=== PATIENT | male | born 1950 | race Caucasian/White ===

== ENCOUNTER 2017-05-30 12:03 | Outpatient (CLI) | payer MEDICARE ==
[2017-05-30 12:46] LABS: #Basophils 0.1 thou/uL (0.0-0.2); #Eosinphils 0.4 thou/uL (0.0-0.7); #Lymphocytes 1.2 thou/uL (1.20-3.40); #Monocytes 0.8 thou/uL (0.11-0.59); #Neutrophils 6.9 thou/uL (1.40-6.50); %Basophils 1.2 % (0.0-1.0); %Eosinophils 4.1 % (0.0-10.0); %Lymphocytes 12.4 % (21.0-51.0); %Monocytes 8.3 % (0.0-10.0); %Neutrophils 73.9 % (42.0-75.0); Hemoglobin 17.5 g/dL (14.0-18.0); Mean Corpuscular HGB CONC 33.2 g/dL (32.0-36.0); Mean Corpuscular Hemoglobin 30.3 pg (27.0-31.0); Mean Corpuscular Volume 91.3 fl (80.0-94.0); Mean Platelet Volume 6.5 fL (7.4-10.4); Platelet Count 302 thou/uL (130-400); RBC Distribution Width 11.9 % (11.5-14.5); Red Blood Cell (RBC) Count 5.78 mill/uL (4.70-6.10); White Blood Cell (WBC) Count 9.3 thou/uL (4.8-10.8)
[2017-05-30 13:14] LABS: Bilirubin Negative (Negative); Blood, Urine Trace (Negative); Clarity Clear (Clear); Glucose, Urine (Dipstick) Negative (Negative); Leukocyte Negative (Negative); Nitrite Negative (Negative); Protein, Urine (Dipstick) Negative (Neg-Trace); Urobilinogen 0.2 mg/dL (0.2-1.0); pH, Urine 5.5 (5.0-9.0)
[2017-05-30 13:23] LABS: Hemoglobin A1c 5.5 % (4.0-6.0)
[2017-05-30 13:25] LABS: ALT (SGPT) 18 U/L (8-55); AST (SGOT) 15 U/L (5-34); Alkaline Phosphatase 86 U/L (40-150); Anion Gap 17 mmol/L (10-20); BUN (Urea Nitrogen) 16 mg/dL (8.4-25.7); Bilirubin, Total 0.9 mg/dL (0.2-1.2); Calc. Creatinine Clearance 0 mL/min (70-130); Calcium 9.9 mg/dL (7.8-10.44); Carbon Dioxide 22 mmol/L (23-31); Chloride 104 mmol/L (98-107); Estimated GFR-MDRD Greater than 90; Globulin 2.3 g/dL (2.4-3.5); Glucose 201 mg/dL (80-115); Potassium 4.6 mmol/L (3.5-5.1); Protein, Total 6.3 g/dL (5.8-8.1); Sodium 138 mmol/L (136-145)
[2017-05-30 13:38] LABS: Bacteria/HPF Rare-Few HPF (None Seen); RBC/HPF 0-3 HPF (0-3); Squamous Epithelial 0-3 HPF (0-3); WBC/HPF 0-3 HPF (0-3)
== END 2017-05-30 12:04 | disposition home or self-care (01) ==
LOC: NAVSJIPCSP 12:03
PROVIDERS: ATTEND Internal Medicine
DX: E11.9 Type 2 diabetes mellitus without complications (principal); C44.329 Squamous cell carcinoma of skin of other parts of face; K29.30 Chronic superficial gastritis without bleeding; I10 Essential (primary) hypertension
CPT/HCPCS: 36415; 80053; 81003; 81015; 83036; 84443; 85025

== ENCOUNTER 2019-12-14 17:48 | Emergency (ER) | payer MEDICARE, OTHER ==
[2019-12-14] MEDS ORDERED: Morphine 2 MG/ML SYRINGE ONE ×4 (18:31→20:56)
[2019-12-14] MEDS ORDERED: Sodium Chloride 0.9% 0 ML ONE (18:31)
[2019-12-14 18:33] LABS: ALT (SGPT) 18 U/L (8-55); AST (SGOT) 18 U/L (5-34); Albumin 4.1 g/dL (3.4-4.8); Alkaline Phosphatase 77 U/L (40-110); Anion Gap 18 mmol/L (10-20); BUN (Urea Nitrogen) 6 mg/dL (8.4-25.7); Bilirubin, Total 1.2 mg/dL (0.2-1.2); Calc. Creatinine Clearance 0 mL/min (70-130); Calcium 8.9 mg/dL (7.8-10.44); Carbon Dioxide 24 mmol/L (23-31); Chloride 102 mmol/L (98-107); Estimated GFR-MDRD Greater than 90; Globulin 2.7 g/dL (2.4-3.5); Glucose 163 mg/dL (80-115); Potassium 3.7 mmol/L (3.5-5.1); Protein, Total 6.8 g/dL (5.8-8.1); Sodium 140 mmol/L (136-145)
[2019-12-14 18:37] LABS: Hemoglobin 16.5 g/dL (14.0-18.0); Mean Corpuscular HGB CONC 33.8 g/dL (32.0-36.0); Mean Corpuscular Hemoglobin 30.6 pg (27.0-31.0); Mean Corpuscular Volume 90.6 fL (78.0-98.0); Mean Platelet Volume 6.7 fL (7.4-10.4); Platelet Count 415 thou/uL (130-400); RBC Distribution Width 11.4 % (11.5-14.5); Red Blood Cell (RBC) Count 5.38 mill/uL (4.70-6.10); White Blood Cell (WBC) Count 15.2 thou/uL (4.8-10.8)
[2019-12-14 18:39] LABS: Band 1 % (5-11); Lymphocytes 16 % (21-51); MDiff Complete? YES; Monocytes 5 % (0-10); Neutrophil 78 % (42-75); RBC Morphology Normal
--- NOTE | 2019-12-14 18:56 | CT ---
CT Stone Protocol: 12/14/2019 6:23 PM HISTORY: Abdominal pain COMPARISON: 04/16/2014 TECHNIQUE: Multiple contiguous axial images were obtained and a CT of the abdomen and pelvis without IV contrast . Coronal and sagittal reformats were performed. FINDINGS: This examination is limited for the evaluation of solid organs and vascular structures due to the lac k of intravenous contrast. Lower Chest: Calcified granulomas in the right lung base. Abdomen: Liver: Stable air is seen in the left lobe biliary tree. Scattered calcified granulomas. Bile Ducts: Air is seen in the common bile duct. Gallbladder: Absent Pancreas: within normal limits. A duodenal diverticulum is seen within the pancreatic head. Spleen: Scattered calcified granulomas. Adrenals: within normal limits. Kidneys: within normal limits. Pelvis: Reproductive Organs: No pelvic masses. Calcifications in the prostate. Ureters: within normal limits. Bladder: within normal limits. Bowel: Normal caliber. Scattered diverticula in the colon. The appendix is not definitely seen. Mesenteric Lymph Nodes: No enlarged mesenteric lymph nodes. Peritoneum: No ascites or free air, no fluid collection. Vessels: Atherosclerotic calcifications in the aorta Retroperitoneum: within normal limits. Abdominal Wall: within normal limits. Bones: Stable circumscribed sclerotic lesions are seen in the bones of the pelvis. Degenerative saleh es are seen in the spine. IMPRESSION: 1. Diverticulosis 2. Duodenal diverticulum
[2019-12-14] MEDS ORDERED: Ondansetron PF 4 MG/2 ML Vial ONE (19:43)
[2019-12-14] MEDS ORDERED: Sodium Chloride 0.9% 100 ML ONE (20:01)
[2019-12-14] MEDS ORDERED: Cefepime 2 GM VIAL ONE (20:01)
[2019-12-14] MEDS ORDERED: Sodium Chloride 0.9% 1,000 ML ONE ×2 (20:30→20:36)
[2019-12-14] MEDS ORDERED: Sodium Chloride 0.9% 250 ML 500 ML ONE (20:30)
== END 2019-12-14 21:05 | disposition short-term general hospital (02) ==
LOC: NAV ERS 17:48
DX: I33.9 Acute and subacute endocarditis, unspecified (principal); R74.0 Nonspecific elevation of levels of transaminase and lactic acid dehydrogenase [LDH]; Z87.891 Personal history of nicotine dependence; Z79.84 Long term (current) use of oral hypoglycemic drugs; Z79.899 Other long term (current) drug therapy
CPT/HCPCS: 36415; 74176; 80053; 83605; 83690; 84484; 85025; 87040; 93005; 96361; 96365; 96374; 96375; 96376; J0692; J2270; J2405; J3370; J3490; J7050

== ENCOUNTER 2019-12-30 02:42 | Emergency (ER) | payer MEDICARE, OTHER ==
[2019-12-30] MEDS ORDERED: Bacitracin 1 PK ONE (03:20)
[2019-12-30] MEDS ORDERED: Adacel (T-DAP) 0.5 ML SYRINGE ONE (03:24)
== END 2019-12-30 04:04 | disposition home or self-care (01) ==
LOC: NAV ERS 02:42
DX: S91.301A Unspecified open wound, right foot, initial encounter (principal); S80.01XA Contusion of right knee, initial encounter; K31.84 Gastroparesis; Z87.891 Personal history of nicotine dependence; Z79.899 Other long term (current) drug therapy; Z23 Encounter for immunization; W01.0XXA Fall on same level from slipping, tripping and stumbling without subsequent striking against object, initial encounter
CPT/HCPCS: 36416; 90471; 90715; 93005

== ENCOUNTER 2020-07-15 16:07 | Emergency (ER) | payer MEDICARE, OTHER ==
[2020-07-15 17:25] LABS: Hemoglobin 18.4 g/dL (14.0-18.0); Mean Corpuscular HGB CONC 32.7 g/dL (32.0-36.0); Mean Corpuscular Hemoglobin 30.2 pg (27.0-31.0); Mean Corpuscular Volume 92.6 fL (78.0-98.0); Mean Platelet Volume 7.2 fL (7.4-10.4); Platelet Count 332 thou/uL (130-400); RBC Distribution Width 12.1 % (11.5-14.5); Red Blood Cell (RBC) Count 6.09 mill/uL (4.70-6.10); White Blood Cell (WBC) Count 5.5 thou/uL (4.8-10.8)
[2020-07-15 17:26] LABS: ALT (SGPT) 41 U/L (8-55); AST (SGOT) 34 U/L (5-34); Albumin 4.5 g/dL (3.4-4.8); Alkaline Phosphatase 108 U/L (40-110); Anion Gap 19 mmol/L (10-20); BUN (Urea Nitrogen) 17 mg/dL (8.4-25.7); Calc. Creatinine Clearance 0 mL/min (70-130); Calcium 9.2 mg/dL (7.8-10.44); Carbon Dioxide 24 mmol/L (23-31); Chloride 97 mmol/L (98-107); Estimated GFR-MDRD 63; Globulin 3.3 g/dL (2.4-3.5); Glucose 250 mg/dL (80-115); Potassium 3.5 mmol/L (3.5-5.1); Protein, Total 7.8 g/dL (5.8-8.1); Sodium 136 mmol/L (136-145)
--- NOTE | 2020-07-15 17:37 | RAD ---
Chest AP view INDICATION: Weakness COMPARISON: Prior exam dated March 04, 2014 FINDINGS: Lungs: The lungs are clear Cardiac silhouette: Heart size is normal. There are stable vascular calcifications of the aortic arc h. Pulmonary vasculature: Normal Pleural spaces: No pleural effusion or pneumothorax is demonstrated. Upper abdomen: No abnormality seen. Osseous structures: No acute osseous abnormality. Additional findings: None. IMPRESSION: No acute cardiopulmonary abnormality.
[2020-07-15] MEDS ORDERED: Sodium Chloride 0.9% 1,000 ML ONE ×2 (17:49→18:48)
[2020-07-15 17:56] LABS: Band 1 % (5-11); Eosinophils 8 % (0-10); Lymphocytes 21 % (21-51); MDiff Complete? YES; Monocytes 5 % (0-10); Neutrophil 65 % (42-75); Platelet Morphology Comment Appears Adequate; RBC Morphology Normal
== END 2020-07-15 19:45 | disposition home or self-care (01) ==
LOC: NAV ERS 16:07
DX: E86.9 Volume depletion, unspecified (principal); I95.1 Orthostatic hypotension; K31.84 Gastroparesis; Z85.858 Personal history of malignant neoplasm of other endocrine glands; Z87.891 Personal history of nicotine dependence; Z79.84 Long term (current) use of oral hypoglycemic drugs; Z79.899 Other long term (current) drug therapy
CPT/HCPCS: 71045; 80053; 84443; 84484; 85025; 93005; J7050

== ENCOUNTER 2020-10-22 16:00 | Inpatient (IN) | payer MEDICARE, OTHER ==
[2020-10-22] MEDS ORDERED: Sodium Chloride 0.9% 0 ML ONE (16:13)
[2020-10-22] MEDS ORDERED: Sodium Chloride 0.9% 1,000 ML ONE (16:15)
[2020-10-22 16:30] LABS: #Basophils 0.1 thou/uL (0.0-0.2); #Eosinphils 0.2 thou/uL (0.0-0.7); #Lymphocytes 1.7 thou/uL (1.20-3.40); #Monocytes 0.7 thou/uL (0.11-0.59); #Neutrophils 7.2 thou/uL (1.40-6.50); %Basophils 1.1 % (0.0-1.0); %Eosinophils 1.7 % (0.0-10.0); %Lymphocytes 17.1 % (21.0-51.0); %Monocytes 7.2 % (0.0-10.0); %Neutrophils 72.9 % (42.0-75.0); Hemoglobin 16.8 g/dL (14.0-18.0); Mean Corpuscular HGB CONC 33.8 g/dL (32.0-36.0); Mean Corpuscular Hemoglobin 31.6 pg (27.0-31.0); Mean Corpuscular Volume 93.6 fL (78.0-98.0); Mean Platelet Volume 6.7 fL (7.4-10.4); Platelet Count 429 thou/uL (130-400); RBC Distribution Width 13.8 % (11.5-14.5); Red Blood Cell (RBC) Count 5.33 mill/uL (4.70-6.10); White Blood Cell (WBC) Count 9.8 thou/uL (4.8-10.8)
[2020-10-22 16:45] LABS: ALT (SGPT) 29 U/L (8-55); AST (SGOT) 27 U/L (5-34); Albumin 4.3 g/dL (3.4-4.8); Alkaline Phosphatase 90 U/L (40-110); Anion Gap 20 mmol/L (10-20); BUN (Urea Nitrogen) 9 mg/dL (8.4-25.7); Bilirubin, Total 1.2 mg/dL (0.2-1.2); Calc. Creatinine Clearance 0 mL/min (70-130); Carbon Dioxide 25 mmol/L (23-31); Chloride 97 mmol/L (98-107); Glucose 137 mg/dL (80-115); Lipase 26 U/L (8-78); Protein, Total 7.3 g/dL (5.8-8.1); Sodium 138 mmol/L (136-145)
[2020-10-22] MEDS ORDERED: cefTRIAXone\\ROCEPHIN 1 GM VIAL ONE (17:39)
[2020-10-22 18:29] LABS: Bilirubin Negative (Negative); Blood, Urine Negative (Negative); Clarity Clear (Clear); Glucose, Urine (Dipstick) Negative (Negative); Ketone, Urine Negative (Negative); Leukocyte Small (Negative); Nitrite Negative (Negative); Protein, Urine (Dipstick) Negative (Neg-Trace); pH, Urine 5.5 (5.0-9.0)
--- NOTE | 2020-10-22 18:30 | CT ---
CT ABDOMEN WITH CONTRAST CT PELVIS WITH CONTRAST: DATE: 10/22/20 HISTORY: 70-year-old male with generalized abdominal pain and UTI. COMPARISON: CT angiogram abdomen and pelvis 12/14/19. Standard CT abdomen and pelvis with contrast 04/16/14. TECHNIQUE: IV injection of iodinated contrast media: 100 mL Isovue 370 Oral contrast media: Not administered. FINDINGS: Gallbladder absent. There is currently a significantly greater amount of gas in bile ducts in the left lobe of the liver, whereas there was only a tiny amount on 12/14/19. There was a moderate amount on 04/16/14, less than c urrently. In the gallbladder fossa, again noted is the small air containing lesion which probably represents th e upper portion of the common hepatic duct and/or proximal branch. It is less dilated than before. Ca liber is currently 12 mm maximum, whereas it was up to 19 mm on 12/14/19. The common bile duct and com mon hepatic duct are less dilated than they were on 12/14/19. No other hepatic abnormality. No portal vein thrombosis. No major pathology of bilateral kidneys, adrenals, pancreas, or spleen. There is no longer evidence o f fatty liver. Large number of diverticula throughout descending and sigmoid colon without convincing evidence of di verticulitis. No abscess. No small bowel dilation, ascites, pneumoperitoneum, pleural effusion, or basilar pulmonary consolidat ion. Unremarkable terminal ileum. Appendix not identified. Has there been appendectomy? Atherosclerosis without aneurysm of abdominal aorta. Unremarkable urinary bladder. IMPRESSION: 1. Pneumobilia, due to prior surgical manipulation of common duct. 2. Descending and sigmoid colonic diverticulosis without diverticulitis. 3. No definite acute findings. TEJ Saab POS: PEMA
[2020-10-22 18:41] LABS: Bacteria/HPF Rare-Few HPF (None Seen); RBC/HPF 0-3 HPF (0-3); Specific Gravity, Urine 1.024 (1.002-1.036); Squamous Epithelial 0-3 HPF (0-3)
[2020-10-22 19:58] LABS: Lactic Acid 4.1 mmol/L (0.5-2.2)
[2020-10-22 21:32] VITALS: BMI 27.1
[2020-10-22] MEDS ORDERED: Acetaminophen/Codeine 30-300mg Tablet PO PRN (22:17)
[2020-10-22] MEDS ORDERED: Fluticasone Propionate Nasal Spray 16 gm Bottle NASAL PRN (22:18)
[2020-10-22] MEDS ORDERED: Metoprolol Tartrate 25 MG TAB PO SCH (22:30)
[2020-10-22] MEDS ORDERED: Atorvastatin Calcium 10 MG TAB PO SCH (22:30)
[2020-10-22] MEDS ORDERED: Temazepam 15 MG CAP PO SCH (22:30)
[2020-10-22] MEDS: Sodium Chloride 0.9% 1,000 ML IV SCH (22:38)
[2020-10-23] MEDS ORDERED: Dextrose 50% Abboject 50 ML SYRINGE IVP PRN (01:15)
[2020-10-23] MEDS ORDERED: HumaLOG 300 UNITS/3 ML VIAL SC PRN (01:15)
[2020-10-23] MEDS ORDERED: Dextrose 5% in Water 1,000 ML IV PRN (01:15)
[2020-10-23 05:47] LABS: Lactic Acid 1.8 mmol/L (0.5-2.2); White Blood Cell (WBC) Count 7.6 thou/uL (4.8-10.8)
[2020-10-23 05:48] LABS: #Basophils 0.1 thou/uL (0.0-0.2); #Eosinphils 0.2 thou/uL (0.0-0.7); #Lymphocytes 1.7 thou/uL (1.20-3.40); #Monocytes 0.7 thou/uL (0.11-0.59); #Neutrophils 4.9 thou/uL (1.40-6.50); %Basophils 1.2 % (0.0-1.0); %Eosinophils 2.7 % (0.0-10.0); %Lymphocytes 21.8 % (21.0-51.0); %Monocytes 9.5 % (0.0-10.0); %Neutrophils 64.8 % (42.0-75.0); Hemoglobin 13.4 g/dL (14.0-18.0); Manual Diff?? NO; Mean Corpuscular HGB CONC 34.9 g/dL (32.0-36.0); Mean Corpuscular Hemoglobin 32.7 pg (27.0-31.0); Mean Corpuscular Volume 93.8 fL (78.0-98.0); Mean Platelet Volume 6.6 fL (7.4-10.4); Platelet Count 318 thou/uL (130-400); RBC Distribution Width 14.1 % (11.5-14.5)
[2020-10-23 05:51] LABS: Anion Gap 14 mmol/L (10-20)
[2020-10-23] MEDS: Sodium Chloride 0.9% 1,000 ML IV SCH ×3 (06:22→18:03)
[2020-10-23 06:33] LABS: BUN (Urea Nitrogen) 7 mg/dL (8.4-25.7); Calc. Creatinine Clearance 102 mL/min (70-130); Carbon Dioxide 21 mmol/L (23-31)
[2020-10-23 06:50] LABS: Calcium 7.2 mg/dL (7.8-10.44); Chloride 107 mmol/L (98-107); Glucose 102 mg/dL (80-115); Potassium 3.5 mmol/L (3.5-5.1); Sodium 138 mmol/L (136-145)
[2020-10-23] MEDS: Aspirin 81 mg Enteric Coated Tablet PO SCH (08:10)
[2020-10-23] MEDS: Clopidogrel Bisulfate 75 MG TAB PO SCH (08:10)
[2020-10-23] MEDS: metFORMIN 500 MG TAB PO SCH ×2 (08:11→18:08)
[2020-10-23] MEDS: Metoprolol Tartrate 25 MG TAB PO SCH ×3 (08:11→21:26)
[2020-10-23] MEDS: Polyethylene Glycol 3350 17 GM Packet PO SCH (08:11)
[2020-10-23] MEDS ORDERED: Metoprolol Tartrate 25 MG TAB PO SCH (09:00)
--- NOTE | 2020-10-23 12:15 | PRG ---
DATE OF SERVICE: 10/23/2020 SUBJECTIVE: The patient is sitting up in a chair, feels better. He has not been out of the bed yet, but feels stronger and did go to the bathroom with assistance last night. He is still having a poor appetite but this is chronic. LABORATORY DATA: Shows sodium 138, potassium 3.5, chloride 107, bicarb 21, BUN 7, creatinine 0.84. Lactic acid down to 1.8, calcium 7.2. WBC 7600, hematocrit 38, hemoglobin 13. OBJECTIVE: LUNGS: Clear. CARDIAC: Shows regular rhythm. ABDOMEN: Soft and nontender. ASSESSMENT: 1. Resolving sepsis syndrome secondary to urinary tract infection on IV Rocephin. 2. Type 2 diabetes, controlled to goal. 3. Deconditioning, improving. 4. Cancer of the parotid, no recurrence. PLAN: 1. Continue IV fluids until patient eating better. 2. Obtain results of urine culture. 3. Continue IV Rocephin. 4. Continue metformin twice daily and Accu-Cheks to monitor and titrate diabetes. Job ID: [id number]
[2020-10-23] MEDS: cefTRIAXone\\ROCEPHIN 1 GM in Sodium Chloride 0.9% 100 ML IVPB SCH (18:03)
--- NOTE | 2020-10-23 18:16 | HP ---
HISTORY OF PRESENT ILLNESS: The patient is a 70-year-old white male, well known to myself, with a long history of type 2 diabetes, chronic back pain from old back injury, hyperlipidemia, and recent parotid gland surgery as well as the distal perforated gallbladder with fistula, requiring extensive surgery, who had been doing fairly well until 2 days ago when he developed significant weakness and fall. He was seen in the [facility] Emergency Room, found to have urinary tract infection and felt to have sepsis syndrome. CT of the head and spine and chest x-ray showed no significant fractures or traumatic injuries. He was offered surgery, but the patient refused and was discharged home on Levaquin. Since that time, he has remained unable to eat, has become weaker and weaker, and presents to the emergency room with inability to maintain ADLs. He is complaining of diffuse myalgias and abdominal pain. He did have a repeat CT scan, which showed his cholecystectomy and previous instrumentation as well as some mild diverticulosis with no diverticulitis. He did have an abnormal urinalysis at the previous hospital, but apparently did not have a culture done there or in this emergency room, but was admitted to the hospital for IV fluids and antibiotics. He has had no nausea, vomiting, or diarrhea. He has had no cough or shortness of breath. He has had a negative COVID and flu swab. PAST MEDICAL HISTORY: As mentioned above, positive for: 1. Type 2 diabetes. 2. Parotid gland cancer. 3. Chronic back pain from old injury and degenerative disk disease. PAST SURGICAL HISTORY: Positive for: 1. Cholecystectomy. 2. Choleduodenal fistula repair. 3. Gastroparesis. 4. Parotid gland surgery. 5. Appendectomy. 6. Open reduction and internal fixation of left ankle. 7. Tonsillectomy. SOCIAL HISTORY: He is a former tobacco user greater than 50 pack years, but none in several years. Denies alcohol use or drug use. ALLERGIES: HE HAS NO KNOWN ALLERGIES. MEDICATIONS: Included: 1. Lipitor 10 mg daily. 2. Metformin 500 twice daily. 3. Prilosec 40 daily. 4. Amitriptyline 50 nightly. 5. MiraLAX 17 g daily. 6. Flonase nasal spray. 7. Tylenol No. 3 as needed for back pain. 8. Temazepam 30 mg nightly. 9. Aspirin 81 daily. 10. Plavix 75 daily. 11. The above-mentioned new initiation of Levaquin 500 daily. REVIEW OF SYSTEMS: HEENT: He denies headaches or dizziness. Just feels weak and funny in his head. He has no change in vision, hearing, hoarseness or dysphagia. PULMONARY: Denies cough, sputum production, pneumonia, asthma, or tuberculosis. CARDIOVASCULAR: Denies chest pain, orthopnea, paroxysmal nocturnal dyspnea, or edema. GASTROINTESTINAL: He has poor appetite, mild nausea, but no vomiting. No diarrhea or constipation. GENITOURINARY: Denies any dysuria, hematuria, or nocturia. MUSCULOSKELETAL: Has had chronic back pain. No pain in his hands or feet. NEUROLOGIC: Denies localized numbness or weakness in arms or extremities. PHYSICAL EXAMINATION: GENERAL: An elderly white male appears in mild distress, oriented x3, and cooperative. VITAL SIGNS: Temperature 98.5, pulse 66, respirations 18, O2 sats 98% on room air, and blood pressure 149/66. LABORATORY DATA: White count of 9800, hematocrit 49, and hemoglobin 16. Lactic acid is 4.1, repeated after IV fluids with initial report of 3.3. Sodium 138, potassium 4.0, chloride 97, bicarb 25, BUN 9, creatinine 1.18, glucose 137, and calcium 9.0. Total bilirubin 1.2, AST 27, ALT 29, protein 7.3, albumin 4.3, globulin 3.0, and lipase 26. Urinalysis this admission shows 4-6 white cells, other admissions not available. ASSESSMENT: 1. Urinary tract infection with sepsis syndrome and sepsis with elevated lactate and altered physical conditioning. 2. Type 2 diabetes. 3. History of cancer of the parotid. 4. Chronic back pain from degenerative disk disease. PLAN: 1. Admit for IV fluids and normal saline at 125 mL an hour. 2. Rocephin 1 g daily. 3. Metformin 500 twice daily. 4. Accu-Cheks q.a.c. nightly. 5. Monitor oral intake. Job ID: [id number]
[2020-10-23] MEDS: Atorvastatin Calcium 10 MG TAB PO SCH (21:28)
[2020-10-23] MEDS: Temazepam 15 MG CAP PO SCH (21:29)
[2020-10-24] MEDS: Sodium Chloride 0.9% 1,000 ML IV SCH ×2 (09:25→10:11)
[2020-10-24] MEDS: Polyethylene Glycol 3350 17 GM Packet PO SCH (09:25)
[2020-10-24] MEDS: metFORMIN 500 MG TAB PO SCH ×2 (09:26→17:27)
[2020-10-24] MEDS: Clopidogrel Bisulfate 75 MG TAB PO SCH (09:26)
[2020-10-24] MEDS: Aspirin 81 mg Enteric Coated Tablet PO SCH (09:26)
[2020-10-24] MEDS: Metoprolol Tartrate 25 MG TAB PO SCH ×2 (09:26→20:22)
[2020-10-24] MEDS ORDERED: Sodium Chloride 0.9% 10 ML ONE (17:11)
[2020-10-24] MEDS: cefTRIAXone\\ROCEPHIN 1 GM in Sodium Chloride 0.9% 100 ML IVPB SCH (17:27)
[2020-10-24] MEDS: Temazepam 15 MG CAP PO SCH (20:22)
[2020-10-24] MEDS: Atorvastatin Calcium 10 MG TAB PO SCH (20:23)
--- NOTE | 2020-10-25 08:25 | PRG ---
DATE OF SERVICE: 10/24/2020 SUBJECTIVE: The patient feels well with no complaints. Sitting up, eating, wanting to go to the bathroom. No problems chronically poor appetite, but is improving. He states he feels much better after the IV fluids and antibiotics. Urine cultures were not done prior to antibiotics when he was seen in the emergency room and repeat culture after antibiotics returning no growth. OBJECTIVE: LUNGS: Clear. ABDOMEN: Soft, nontender. CARDIAC: Regular rhythm. VITAL SIGNS: Show temperature 98.9, pulse 70, respirations 16, O2 sats 97% on room air, and blood pressure 135/68. LABORATORY DATA: Accu-Cheks range 92 to 119. ASSESSMENT: 1. Resolving sepsis syndrome secondary to urinary tract infection, on IV Rocephin with cultures negative, but was done after antibiotics started. 2. Type 2 diabetes, controlled to goal. 3. Chronic back pain, stable. PLAN: Discontinue IV fluids tomorrow. Discontinue Rocephin tomorrow. Start on Levaquin 500 mg daily and discharge home if continued improvement on oral antibiotics. Job ID: [id number]
[2020-10-25] MEDS: Metoprolol Tartrate 25 MG TAB PO SCH ×2 (08:51→19:58)
[2020-10-25] MEDS: Clopidogrel Bisulfate 75 MG TAB PO SCH (08:51)
[2020-10-25] MEDS: Aspirin 81 mg Enteric Coated Tablet PO SCH (08:51)
[2020-10-25] MEDS: metFORMIN 500 MG TAB PO SCH ×2 (08:51→17:38)
[2020-10-25] MEDS: Polyethylene Glycol 3350 17 GM Packet PO SCH (08:52)
[2020-10-25 19:56] VITALS: BP 156/75; TEMP 98
[2020-10-25] MEDS: Temazepam 15 MG CAP PO SCH (19:59)
[2020-10-25] MEDS: Atorvastatin Calcium 10 MG TAB PO SCH (19:59)
== END 2020-10-25 20:50 | disposition home or self-care (01) | DRG 872 ==
LOC: NAV ERS 16:00 → OBSVTOIN 20:37 → NAV ACUTE 20:37
PROVIDERS: ADMIT Internal Medicine; ATTEND Internal Medicine
DX: A41.9 Sepsis, unspecified organism (principal); N39.0 Urinary tract infection, site not specified; G89.29 Other chronic pain; M54.9 Dorsalgia, unspecified; E86.0 Dehydration; E86.1 Hypovolemia; E78.5 Hyperlipidemia, unspecified; E11.9 Type 2 diabetes mellitus without complications; Z90.89 Acquired absence of other organs; Z79.01 Long term (current) use of anticoagulants; Z87.891 Personal history of nicotine dependence; Z79.84 Long term (current) use of oral hypoglycemic drugs; Z79.899 Other long term (current) drug therapy; Z79.82 Long term (current) use of aspirin; Z90.49 Acquired absence of other specified parts of digestive tract; Z79.2 Long term (current) use of antibiotics; Z98.890 Other specified postprocedural states; Z85.89 Personal history of malignant neoplasm of other organs and systems
CPT/HCPCS: 36416; 74177; 80048; 80053; 81003; 81015; 83605; 83690; 83880; 84484; 85025; 87040; 87086; 93005; 96374; G0378; J0696; J3490; J7050

== ENCOUNTER 2020-12-12 21:14 | Emergency (ER) | payer MEDICARE, OTHER ==
[2020-12-12 22:16] LABS: #Basophils 0.1 thou/uL (0.0-0.2); #Monocytes 0.7 thou/uL (0.11-0.59); #Neutrophils 11.3 thou/uL (1.40-6.50); %Basophils 0.8 % (0.0-1.0); %Eosinophils 0.1 % (0.0-10.0); %Lymphocytes 7.6 % (21.0-51.0); %Monocytes 5.1 % (0.0-10.0); %Neutrophils 86.4 % (42.0-75.0); Hemoglobin 16.8 g/dL (14.0-18.0); Mean Corpuscular HGB CONC 33.4 g/dL (32.0-36.0); Mean Corpuscular Hemoglobin 32.4 pg (27.0-31.0); Mean Corpuscular Volume 97.1 fL (78.0-98.0); Mean Platelet Volume 6.2 fL (7.4-10.4); Platelet Count 582 thou/uL (130-400); Red Blood Cell (RBC) Count 5.19 mill/uL (4.70-6.10); White Blood Cell (WBC) Count 13.1 thou/uL (4.8-10.8)
[2020-12-12 22:33] LABS: ALT (SGPT) 21 U/L (8-55); AST (SGOT) 26 U/L (5-34); Albumin 3.8 g/dL (3.4-4.8); Alkaline Phosphatase 94 U/L (40-110); Anion Gap 25 mmol/L (10-20); BUN (Urea Nitrogen) 11 mg/dL (8.4-25.7); Bilirubin, Total 1.8 mg/dL (0.2-1.2); Calc. Creatinine Clearance 0 mL/min (70-130); Calcium 9.1 mg/dL (7.8-10.44); Carbon Dioxide 17 mmol/L (23-31); Chloride 101 mmol/L (98-107); Globulin 2.8 g/dL (2.4-3.5); Glucose 144 mg/dL (80-115); Lipase 20 U/L (8-78); Potassium 4.2 mmol/L (3.5-5.1); Protein, Total 6.6 g/dL (5.8-8.1); Sodium 139 mmol/L (136-145)
[2020-12-12] MEDS ORDERED: Sodium Chloride 0.9% 100 ML ONE ×2 (22:46→23:04)
[2020-12-12 22:57] LABS: Bilirubin Negative (Negative); Blood, Urine Negative (Negative); Glucose, Urine (Dipstick) Negative (Negative); Ketone, Urine 40 mg/dL (Negative); Leukocyte Moderate (Negative); Nitrite Positive (Negative); Protein, Urine (Dipstick) Negative (Neg-Trace)
[2020-12-12 22:58] LABS: Clarity Hazy (Clear)
[2020-12-12 22:59] LABS: Bacteria/HPF 1+ HPF (None Seen); RBC/HPF None Seen HPF (0-3); Squamous Epithelial 0-3 HPF (0-3); WBC/HPF Greater Than 50 HPF (0-3)
[2020-12-12] MEDS ORDERED: cefTRIAXone\\ROCEPHIN 2 GM VIAL ONE (23:04)
[2020-12-13] MEDS ORDERED: Sodium Chloride 0.9% 500 ML ONE (00:15)
== END 2020-12-13 00:10 | disposition short-term general hospital (02) ==
LOC: NAV ERS 21:14
DX: A41.9 Sepsis, unspecified organism (principal); N39.0 Urinary tract infection, site not specified; E78.5 Hyperlipidemia, unspecified; E11.43 Type 2 diabetes mellitus with diabetic autonomic (poly)neuropathy; K31.84 Gastroparesis; Z87.891 Personal history of nicotine dependence; Z79.84 Long term (current) use of oral hypoglycemic drugs; Z79.82 Long term (current) use of aspirin; Z79.899 Other long term (current) drug therapy
CPT/HCPCS: 71045; 80053; 81003; 81015; 83605; 83690; 84484; 85025; 87040; 87077; 87086; 87186; 93005; 96365; 96367; J0696; J3370; J3490; J7030

== ENCOUNTER 2021-01-10 09:04 | Emergency (ER) | payer MEDICARE, OTHER ==
[2021-01-10 10:00] LABS: Hemoglobin 12.6 g/dL (14.0-18.0); Mean Corpuscular HGB CONC 31.1 g/dL (32.0-36.0); Mean Corpuscular Hemoglobin 31.2 pg (27.0-31.0); Mean Platelet Volume 7.1 fL (7.4-10.4); Platelet Count 454 thou/uL (130-400); Red Blood Cell (RBC) Count 4.04 mill/uL (4.70-6.10); White Blood Cell (WBC) Count 10.1 thou/uL (4.8-10.8)
[2021-01-10] MEDS ORDERED: Aspirin 325 MG TAB ONE (10:06)
[2021-01-10] MEDS ORDERED: Nitroglycerin 2% Ointment 1 INCH/1 GM Packet ONE (10:06)
[2021-01-10 10:07] LABS: ALT (SGPT) 12 U/L (8-55); AST (SGOT) 12 U/L (5-34); Albumin 3.2 g/dL (3.4-4.8); Alkaline Phosphatase 77 U/L (40-110); Anion Gap 13 mmol/L (10-20); BUN (Urea Nitrogen) 11 mg/dL (8.4-25.7); Bilirubin, Total 0.6 mg/dL (0.2-1.2); CK (CPK) 30 U/L (30-200); Calc. Creatinine Clearance 0 mL/min (70-130); Calcium 8.2 mg/dL (7.8-10.44); Carbon Dioxide 23 mmol/L (23-31); Chloride 104 mmol/L (98-107); Globulin 2.4 g/dL (2.4-3.5); Glucose 125 mg/dL (80-115); Lipase 22 U/L (8-78); Potassium 3.8 mmol/L (3.5-5.1); Protein, Total 5.6 g/dL (5.8-8.1); Sodium 136 mmol/L (136-145)
[2021-01-10 10:12] LABS: Eosinophils 2 % (0-10); Lymphocytes 19 % (21-51); MDiff Complete? YES; Monocytes 4 % (0-10); Neutrophil 74 % (42-75); Platelet Morphology Comment Appears Increased; RBC Morphology Normal
[2021-01-10 10:44] LABS: Bilirubin Negative (Negative); Blood, Urine Negative (Negative); Clarity Clear (Clear); Glucose, Urine (Dipstick) Negative (Negative); Ketone, Urine Negative (Negative); Leukocyte Negative (Negative); Nitrite Negative (Negative); Protein, Urine (Dipstick) Negative (Neg-Trace); Specific Gravity, Urine 1.015 (1.005-1.030); Urobilinogen 0.2 mg/dL (Less than 2); pH, Urine 6.5 (5.0-9.0)
== END 2021-01-10 11:20 ==
LOC: NAV ERS 09:04
DX: R07.9 Chest pain, unspecified (principal); R06.02 Shortness of breath; E11.9 Type 2 diabetes mellitus without complications; E78.5 Hyperlipidemia, unspecified; Z87.891 Personal history of nicotine dependence; Z79.899 Other long term (current) drug therapy; Z79.84 Long term (current) use of oral hypoglycemic drugs; Z79.82 Long term (current) use of aspirin
CPT/HCPCS: 71045; 80053; 81003; 82550; 83605; 83690; 84484; 85025; 85379; 93005; 94760

== ENCOUNTER 2021-05-06 10:18 | Emergency (ER) | payer MEDICARE, OTHER ==
[2021-05-06] MEDS ORDERED: Bupivacaine 0.5% 10 ML VIAL ONE (10:35)
[2021-05-06 11:29] LABS: #Basophils 0.1 thou/uL (0.0-0.2); #Eosinphils 0.2 thou/uL (0.0-0.7); #Lymphocytes 0.9 thou/uL (1.20-3.40); #Monocytes 0.7 thou/uL (0.11-0.59); #Neutrophils 9.2 thou/uL (1.40-6.50); %Eosinophils 1.9 % (0.0-10.0); %Lymphocytes 7.7 % (21.0-51.0); %Monocytes 6.1 % (0.0-10.0); %Neutrophils 83.3 % (42.0-75.0); Hemoglobin 13.9 g/dL (14.0-18.0); Mean Corpuscular HGB CONC 32.7 g/dL (32.0-36.0); Mean Corpuscular Hemoglobin 30.3 pg (27.0-31.0); Mean Corpuscular Volume 92.5 fL (78.0-98.0); Platelet Count 360 thou/uL (130-400); RBC Distribution Width 13.1 % (11.5-14.5); Red Blood Cell (RBC) Count 4.58 mill/uL (4.70-6.10)
[2021-05-06 11:45] LABS: ALT (SGPT) 12 U/L (8-55); AST (SGOT) 12 U/L (5-34); Albumin 3.2 g/dL (3.4-4.8); Alkaline Phosphatase 81 U/L (40-110); Anion Gap 13 mmol/L (10-20); BUN (Urea Nitrogen) 10 mg/dL (8.4-25.7); Bilirubin, Total 1.1 mg/dL (0.2-1.2); Calc. Creatinine Clearance 0 mL/min (70-130); Calcium 8.3 mg/dL (7.8-10.44); Carbon Dioxide 20 mmol/L (23-31); Chloride 108 mmol/L (98-107); Globulin 2.5 g/dL (2.4-3.5); Glucose 181 mg/dL (80-115); Potassium 3.8 mmol/L (3.5-5.1); Protein, Total 5.7 g/dL (5.8-8.1); Sodium 137 mmol/L (136-145)
[2021-05-06] MEDS ORDERED: Furosemide 40 MG TAB ONE (12:25)
== END 2021-05-06 12:56 | disposition home or self-care (01) ==
LOC: NAV ERS 10:18
DX: K02.9 Dental caries, unspecified (principal); K03.2 Erosion of teeth; I50.9 Heart failure, unspecified; E11.9 Type 2 diabetes mellitus without complications; E78.5 Hyperlipidemia, unspecified; I25.2 Old myocardial infarction; Z87.891 Personal history of nicotine dependence; Z79.899 Other long term (current) drug therapy
CPT/HCPCS: 36415; 64400; 71045; 80053; 83880; 84484; 85025; 93005; J3490

== ENCOUNTER 2021-07-12 21:38 | Emergency (ER) | payer MEDICARE, OTHER ==
[2021-07-12 22:26] LABS: #Basophils 0.1 thou/uL (0.0-0.2); #Eosinphils 0.2 thou/uL (0.0-0.7); #Lymphocytes 1.4 thou/uL (1.20-3.40); #Monocytes 0.6 thou/uL (0.11-0.59); #Neutrophils 7.5 thou/uL (1.40-6.50); %Basophils 1.2 % (0.0-1.0); %Eosinophils 1.8 % (0.0-10.0); %Lymphocytes 14.4 % (21.0-51.0); %Monocytes 6.4 % (0.0-10.0); %Neutrophils 76.2 % (42.0-75.0); Hemoglobin 15.1 g/dL (14.0-18.0); Mean Corpuscular Hemoglobin 30.4 pg (27.0-31.0); Mean Corpuscular Volume 92.3 fL (78.0-98.0); Platelet Count 299 thou/uL (130-400); RBC Distribution Width 11.5 % (11.5-14.5); Red Blood Cell (RBC) Count 4.95 mill/uL (4.70-6.10); White Blood Cell (WBC) Count 9.9 thou/uL (4.8-10.8)
[2021-07-12] MEDS ORDERED: Ketorolac Tromethamine 30 MG/ML VIAL ONE (22:26)
[2021-07-12] MEDS ORDERED: Sodium Chloride 0.9% 1,000 ML ONE (22:26)
[2021-07-12] MEDS ORDERED: cloNIDine 0.2 MG TAB ONE (22:26)
[2021-07-12] MEDS ORDERED: Ondansetron PF 4 MG/2 ML Vial ONE (22:26)
[2021-07-12 22:44] LABS: ALT (SGPT) 20 U/L (8-55); AST (SGOT) 25 U/L (5-34); Albumin 3.6 g/dL (3.4-4.8); Alkaline Phosphatase 82 U/L (40-110); Anion Gap 15 mmol/L (10-20); BUN (Urea Nitrogen) 7 mg/dL (8.4-25.7); Bilirubin, Total 1.2 mg/dL (0.2-1.2); Calc. Creatinine Clearance 0 mL/min (70-130); Calcium 8.8 mg/dL (7.8-10.44); Carbon Dioxide 25 mmol/L (23-31); Chloride 101 mmol/L (98-107); Globulin 2.6 g/dL (2.4-3.5); Glucose 192 mg/dL (80-115); Lipase 16 U/L (8-78); Potassium 4.3 mmol/L (3.5-5.1); Protein, Total 6.2 g/dL (5.8-8.1); Sodium 137 mmol/L (136-145)
[2021-07-12] MEDS ORDERED: Morphine 4 MG/ML VIAL ONE (23:45)
== END 2021-07-13 01:12 | disposition home or self-care (01) ==
LOC: NAV ERS 21:38
DX: R51.9 Headache, unspecified (principal); R11.2 Nausea with vomiting, unspecified; Z79.82 Long term (current) use of aspirin; Z79.899 Other long term (current) drug therapy; Z79.84 Long term (current) use of oral hypoglycemic drugs; E78.5 Hyperlipidemia, unspecified; I25.2 Old myocardial infarction; Z87.891 Personal history of nicotine dependence; E11.43 Type 2 diabetes mellitus with diabetic autonomic (poly)neuropathy; K31.84 Gastroparesis
CPT/HCPCS: 70450; 80053; 83690; 85025; 96374; 96375; J1885; J2270; J2405; J7050

== ENCOUNTER 2021-07-14 17:08 | Emergency (ER) | payer MEDICARE, OTHER ==
[2021-07-14] MEDS ORDERED: Ondansetron ODT 4 MG TAB ONE (17:23)
[2021-07-14] MEDS ORDERED: Sodium Chloride 0.9% 1,000 ML ONE (18:08)
[2021-07-14] MEDS ORDERED: Metoclopramide HCl 10 MG/2 ML VIAL ONE ×2 (18:08→19:23)
[2021-07-14] MEDS ORDERED: diphenhydrAMINE 50 MG/ML VIAL ONE (18:08)
[2021-07-14] MEDS ORDERED: hydrALAZINE 20 MG/ML VIAL ONE ×2 (18:29→19:24)
[2021-07-14] MEDS ORDERED: Magnesium 2 GM/50 ML BAG (IN WATER) ONE (19:23)
[2021-07-14] MEDS ORDERED: Sodium Chloride 0.9% 100 ML ONE (19:24)
[2021-07-14 20:39] LABS: %Lymphocytes 11.9 % (21.0-51.0); %Monocytes 6.8 % (0.0-10.0); Hemoglobin 15.8 g/dL (14.0-18.0); Manual Diff?? NO; Mean Corpuscular HGB CONC 33.4 g/dL (32.0-36.0); Mean Corpuscular Hemoglobin 30.6 pg (27.0-31.0); Mean Corpuscular Volume 91.5 fL (78.0-98.0); Mean Platelet Volume 7.6 fL (7.4-10.4); Platelet Count 363 thou/uL (130-400); RBC Distribution Width 11.4 % (11.5-14.5); Red Blood Cell (RBC) Count 5.16 mill/uL (4.70-6.10); White Blood Cell (WBC) Count 9.2 thou/uL (4.8-10.8)
[2021-07-14 20:40] LABS: #Basophils 0.1 thou/uL (0.0-0.2); #Eosinphils 0.1 thou/uL (0.0-0.7); #Lymphocytes 1.1 thou/uL (1.20-3.40); #Monocytes 0.6 thou/uL (0.11-0.59); #Neutrophils 7.3 thou/uL (1.40-6.50); %Basophils 1.2 % (0.0-1.0); %Eosinophils 1.2 % (0.0-10.0)
[2021-07-14 20:47] LABS: ALT (SGPT) 21 U/L (8-55); AST (SGOT) 30 U/L (5-34); Albumin 3.7 g/dL (3.4-4.8); Alkaline Phosphatase 75 U/L (40-110); Anion Gap 15 mmol/L (10-20); BUN (Urea Nitrogen) 10 mg/dL (8.4-25.7); Bilirubin, Total 1.4 mg/dL (0.2-1.2); Calc. Creatinine Clearance 0 mL/min (70-130); Carbon Dioxide 26 mmol/L (23-31); Chloride 100 mmol/L (98-107); Globulin 2.6 g/dL (2.4-3.5); Glucose 182 mg/dL (80-115); Potassium 4.2 mmol/L (3.5-5.1); Protein, Total 6.3 g/dL (5.8-8.1); Sodium 137 mmol/L (136-145)
== END 2021-07-14 21:19 | disposition home or self-care (01) ==
LOC: NAV ERS 17:08
DX: R51.9 Headache, unspecified (principal); R11.0 Nausea; E11.43 Type 2 diabetes mellitus with diabetic autonomic (poly)neuropathy; K31.84 Gastroparesis; I25.2 Old myocardial infarction; Z87.891 Personal history of nicotine dependence; Z79.82 Long term (current) use of aspirin; Z85.858 Personal history of malignant neoplasm of other endocrine glands; Z79.84 Long term (current) use of oral hypoglycemic drugs
CPT/HCPCS: 80053; 85025; 96365; 96367; 96368; 96375; 96376; J0360; J1200; J2765; J3475; J7050; Q0162

== ENCOUNTER 2021-07-15 00:53 | Emergency (ER) | payer MEDICARE, OTHER ==
[2021-07-15] MEDS ORDERED: Metoprolol Tartrate 5 MG/5 ML VIAL ONE (01:23)
[2021-07-15 01:37] LABS: PTT 25.8 sec (22.9-36.1); Prothrombin Time 12.8 sec (12.0-14.7)
[2021-07-15] MEDS ORDERED: hydrALAZINE 20 MG/ML VIAL ONE (01:47)
[2021-07-15 02:22] LABS: SARS-CoV-2 NAA Rapid Test Not Detected (NotDetected)
[2021-07-15] MEDS ORDERED: cloNIDine 0.1 MG TAB ONE (02:34)
[2021-07-15] MEDS ORDERED: Metoclopramide HCl 10 MG/2 ML VIAL ONE (03:10)
[2021-07-15] MEDS ORDERED: Sodium Chloride 0.9% 100 ML ONE (03:10)
[2021-07-15] MEDS ORDERED: diphenhydrAMINE 50 MG/ML VIAL ONE (03:10)
== END 2021-07-15 04:31 | disposition short-term general hospital (02) ==
LOC: NAV ERS 00:53
DX: G43.919 Migraine, unspecified, intractable, without status migrainosus (principal); I10 Essential (primary) hypertension; Z20.822 Contact with and (suspected) exposure to COVID-19; E11.9 Type 2 diabetes mellitus without complications; E78.5 Hyperlipidemia, unspecified; I25.2 Old myocardial infarction; Z87.891 Personal history of nicotine dependence; Z79.899 Other long term (current) drug therapy
CPT/HCPCS: 85610; 85730; 96365; 96375; J0360; J1200; J2765; U0002

== ENCOUNTER 2021-09-07 17:24 | Observation (INO) | payer MEDICARE, OTHER ==
[2021-09-07] MEDS ORDERED: Sodium Chloride 0.9% 1,000 ML ONE ×2 (18:11→19:59)
[2021-09-07] MEDS ORDERED: Ondansetron PF 4 MG/2 ML Vial ONE (18:21)
[2021-09-07 18:53] LABS: Hemoglobin 16.2 g/dL (14.0-18.0); Mean Corpuscular HGB CONC 34.1 g/dL (32.0-36.0); Mean Corpuscular Hemoglobin 29.8 pg (27.0-31.0); Mean Corpuscular Volume 87.4 fL (78.0-98.0); Mean Platelet Volume 7.4 fL (7.4-10.4); Platelet Count 404 thou/uL (130-400); RBC Distribution Width 11.6 % (11.5-14.5); Red Blood Cell (RBC) Count 5.43 mill/uL (4.70-6.10); White Blood Cell (WBC) Count 10.3 thou/uL (4.8-10.8)
[2021-09-07 19:01] LABS: Lymphocytes 18 % (21-51); MDiff Complete? YES; Manual Diff?? YES; Monocytes 5 % (0-10); Neutrophil 75 % (42-75)
[2021-09-07 19:02] LABS: Anisocytosis SLIGHT = 6-15 cells (100X) (0-5/hpf); Eosinophils 2 % (0-10)
[2021-09-07 19:04] LABS: ALT (SGPT) 43 U/L (8-55); AST (SGOT) 54 U/L (5-34); Alkaline Phosphatase 97 U/L (40-110); Anion Gap 22 mmol/L (10-20); BUN (Urea Nitrogen) 21 mg/dL (8.4-25.7); Bilirubin, Total 2.3 mg/dL (0.2-1.2); CK (CPK) 33 U/L (30-200); Calc. Creatinine Clearance 0 mL/min (70-130); Calcium 8.8 mg/dL (7.8-10.44); Carbon Dioxide 19 mmol/L (23-31); Chloride 101 mmol/L (98-107); Globulin 3.1 g/dL (2.4-3.5); Glucose 146 mg/dL (80-115); Lipase 34 U/L (8-78); Potassium 3.9 mmol/L (3.5-5.1); Protein, Total 7.1 g/dL (5.8-8.1); Sodium 138 mmol/L (136-145)
[2021-09-07 21:23] LABS: Bilirubin Negative (Negative); Blood, Urine Trace (Negative); Clarity Slightly Cloudy (Clear); Glucose, Urine (Dipstick) 100 mg/dL (Negative); Ketone, Urine Negative (Negative); Leukocyte Negative (Negative); Nitrite Negative (Negative); Protein, Urine (Dipstick) 30 mg/dL (Neg-Trace); Urobilinogen 0.2 mg/dL (Less than 2); pH, Urine 5.5 (5.0-9.0)
[2021-09-07 21:29] LABS: Bacteria/HPF Rare-Few HPF (None Seen); RBC/HPF None Seen HPF (0-3); WBC/HPF 0-3 HPF (0-3)
[2021-09-07] MEDS ORDERED: Sodium Chloride 0.9% 100 ML ONE (21:31)
[2021-09-07] MEDS ORDERED: Piperacillin/Tazobactam 3.375 GM VIAL ONE (21:31)
[2021-09-07 22:47] LABS: SARS-CoV-2 NAA Rapid Test Not Detected (NotDetected)
[2021-09-08] MEDS ORDERED: Sodium Chloride 0.9% 10 ML ONE (00:05)
[2021-09-08] MEDS: Sodium Chloride 0.9% 1,000 ML IV SCH ×3 (00:29→10:30)
[2021-09-08] MEDS ORDERED: Acetaminophen 325 MG TAB PO PRN (00:30)
[2021-09-08] MEDS ORDERED: Dextrose 50% Abboject 50 ML SYRINGE IVP PRN (00:30)
[2021-09-08] MEDS ORDERED: Ondansetron ODT 4 MG TAB SL PRN (00:30)
[2021-09-08] MEDS ORDERED: Dextrose 5% in Water 1,000 ML IV PRN (00:30)
[2021-09-08] MEDS ORDERED: Ondansetron PF 4 MG/2 ML Vial IVP PRN (00:30)
[2021-09-08] MEDS ORDERED: HumaLOG 300 UNITS/3 ML VIAL SC PRN (00:30)
[2021-09-08 01:42] VITALS: BMI 27.5
[2021-09-08] MEDS: Piperacillin/Tazobactam 3.375 GM in Sodium Chloride 0.9% 100 ML IVPB SCH ×3 (02:17→16:39)
[2021-09-08 06:46] LABS: Anion Gap 13 mmol/L (10-20); BUN (Urea Nitrogen) 18 mg/dL (8.4-25.7); Calc. Creatinine Clearance 51 mL/min (70-130); Carbon Dioxide 22 mmol/L (23-31); Chloride 105 mmol/L (98-107); Glucose 123 mg/dL (80-115); Sodium 137 mmol/L (136-145)
[2021-09-08 07:03] LABS: Potassium 2.8 mmol/L (3.5-5.1)
[2021-09-08] MEDS ORDERED: Potassium Chloride 20 MEQ TAB PO SCH (08:00)
[2021-09-08] MEDS: Carvedilol 3.125 MG TAB PO SCH ×2 (08:08→16:39)
[2021-09-08] MEDS: Amlodipine 5 MG TAB PO SCH (08:09)
[2021-09-08] MEDS: metFORMIN 850 MG TAB PO SCH ×2 (08:09→20:49)
[2021-09-08] MEDS: Clopidogrel Bisulfate 75 MG TAB PO SCH (08:09)
[2021-09-08] MEDS: Aspirin 81 mg Enteric Coated Tablet PO SCH (08:09)
[2021-09-08] MEDS: Losartan Potassium 50 MG TAB PO SCH (08:09)
[2021-09-08] MEDS ORDERED: Iopamidol 370 76% 100 ML VIAL ONE (09:00)
[2021-09-08 09:43] LABS: Lactic Acid 5.3 mmol/L (0.5-2.2)
[2021-09-08 12:48] LABS: Lactic Acid 3.9 mmol/L (0.5-2.2)
[2021-09-08] MEDS: Magnesium Oxide 400 MG TAB PO SCH ×2 (16:39→20:49)
[2021-09-08] MEDS: Tamsulosin HCl 0.4 MG CAP PO SCH (16:40)
[2021-09-08 18:20] LABS: Lactic Acid 2.8 mmol/L (0.5-2.2)
[2021-09-08 18:24] LABS: Anion Gap 14 mmol/L (10-20); BUN (Urea Nitrogen) 12 mg/dL (8.4-25.7); Calc. Creatinine Clearance 52 mL/min (70-130); Calcium 8.3 mg/dL (7.8-10.44); Carbon Dioxide 21 mmol/L (23-31); Chloride 104 mmol/L (98-107); Glucose 119 mg/dL (80-115); Magnesium 1.1 mg/dL (1.6-2.6); Potassium 3.3 mmol/L (3.5-5.1); Sodium 136 mmol/L (136-145)
[2021-09-08] MEDS: Atorvastatin Calcium 40 MG TAB PO SCH (20:49)
[2021-09-09] MEDS ORDERED: Sodium Chloride 0.9% 10 ML ONE (02:49)
[2021-09-09] MEDS: Piperacillin/Tazobactam 3.375 GM in Sodium Chloride 0.9% 100 ML IVPB SCH ×3 (02:50→18:44)
[2021-09-09 06:45] LABS: #Basophils 0.1 thou/uL (0.0-0.2); #Eosinphils 0.3 thou/uL (0.0-0.7); #Lymphocytes 1.3 thou/uL (1.20-3.40); #Monocytes 0.7 thou/uL (0.11-0.59); #Neutrophils 4.3 thou/uL (1.40-6.50); %Basophils 1.6 % (0.0-1.0); %Eosinophils 4.1 % (0.0-10.0); %Lymphocytes 19.1 % (21.0-51.0); %Monocytes 10.1 % (0.0-10.0); %Neutrophils 65.1 % (42.0-75.0); Hemoglobin 13.9 g/dL (14.0-18.0); Mean Corpuscular HGB CONC 33.2 g/dL (32.0-36.0); Mean Corpuscular Hemoglobin 30.3 pg (27.0-31.0); Mean Corpuscular Volume 91.2 fL (78.0-98.0); Mean Platelet Volume 6.9 fL (7.4-10.4); Platelet Count 325 thou/uL (130-400); RBC Distribution Width 12.5 % (11.5-14.5); Red Blood Cell (RBC) Count 4.59 mill/uL (4.70-6.10); White Blood Cell (WBC) Count 6.6 thou/uL (4.8-10.8)
[2021-09-09 06:59] LABS: Anion Gap 13 mmol/L (10-20); BUN (Urea Nitrogen) 9 mg/dL (8.4-25.7); Calc. Creatinine Clearance 55 mL/min (70-130); Carbon Dioxide 20 mmol/L (23-31); Chloride 111 mmol/L (98-107); Glucose 100 mg/dL (80-115); Sodium 141 mmol/L (136-145)
[2021-09-09 07:05] LABS: Potassium 2.9 mmol/L (3.5-5.1)
[2021-09-09] MEDS: Clopidogrel Bisulfate 75 MG TAB PO SCH (08:39)
[2021-09-09] MEDS: metFORMIN 850 MG TAB PO SCH ×2 (08:39→20:28)
[2021-09-09] MEDS: Aspirin 81 mg Enteric Coated Tablet PO SCH (08:39)
[2021-09-09] MEDS: Magnesium Oxide 400 MG TAB PO SCH ×2 (08:39→12:28)
[2021-09-09] MEDS: Amlodipine 5 MG TAB PO SCH (08:40)
[2021-09-09] MEDS: Losartan Potassium 50 MG TAB PO SCH (08:40)
[2021-09-09] MEDS: Carvedilol 3.125 MG TAB PO SCH ×2 (08:40→17:20)
[2021-09-09] MEDS: Potassium Chloride 20 MEQ in Premix Bag 1 BAG IVPB SCH ×2 (11:33→11:34)
[2021-09-09] MEDS ORDERED: Potassium Chloride 20 MEQ TAB PO SCH ×2 (12:15→14:00)
[2021-09-09] MEDS: NS 0.9% w/ 40 MEQ KCL 1,000 ML IV SCH ×2 (12:27→14:35)
[2021-09-09 12:38] LABS: Lactic Acid 3.9 mmol/L (0.5-2.2)
[2021-09-09] MEDS: Tamsulosin HCl 0.4 MG CAP PO SCH (17:20)
[2021-09-09 19:33] LABS: Anion Gap 16 mmol/L (10-20); BUN (Urea Nitrogen) 7 mg/dL (8.4-25.7); Calc. Creatinine Clearance 59 mL/min (70-130); Calcium 8.3 mg/dL (7.8-10.44); Carbon Dioxide 19 mmol/L (23-31); Chloride 108 mmol/L (98-107); Glucose 136 mg/dL (80-115); Potassium 3.6 mmol/L (3.5-5.1); Sodium 139 mmol/L (136-145)
[2021-09-09] MEDS: Atorvastatin Calcium 40 MG TAB PO SCH (20:28)
[2021-09-09 21:24] LABS: Bilirubin Negative (Negative); Blood, Urine Negative (Negative); Clarity Clear (Clear); Glucose, Urine (Dipstick) 250 mg/dL (Negative); Ketone, Urine Negative (Negative); Leukocyte Negative (Negative); Nitrite Negative (Negative); Protein, Urine (Dipstick) Negative (Neg-Trace); Specific Gravity, Urine 1.015 (1.005-1.030); Urobilinogen 0.2 mg/dL (Less than 2); pH, Urine 5.5 (5.0-9.0)
[2021-09-10] MEDS: Piperacillin/Tazobactam 3.375 GM in Sodium Chloride 0.9% 100 ML IVPB SCH ×2 (02:08→09:29)
[2021-09-10] MEDS: Losartan Potassium 50 MG TAB PO SCH (09:32)
[2021-09-10] MEDS: Carvedilol 3.125 MG TAB PO SCH (09:32)
[2021-09-10] MEDS: Clopidogrel Bisulfate 75 MG TAB PO SCH (09:32)
[2021-09-10] MEDS: metFORMIN 850 MG TAB PO SCH (09:32)
[2021-09-10] MEDS: Amlodipine 5 MG TAB PO SCH (09:32)
[2021-09-10] MEDS: Aspirin 81 mg Enteric Coated Tablet PO SCH (09:33)
[2021-09-10 10:21] LABS: Anion Gap 15 mmol/L (10-20); BUN (Urea Nitrogen) 5 mg/dL (8.4-25.7); Calc. Creatinine Clearance 59 mL/min (70-130); Calcium 8.4 mg/dL (7.8-10.44); Carbon Dioxide 21 mmol/L (23-31); Chloride 108 mmol/L (98-107); Glucose 161 mg/dL (80-115); Magnesium 1.3 mg/dL (1.6-2.6); Potassium 3.1 mmol/L (3.5-5.1); Sodium 141 mmol/L (136-145)
[2021-09-10 10:21] LABS: Lactic Acid 5.2 mmol/L (0.5-2.2)
[2021-09-10 12:16] VITALS: BP 152/80; TEMP 98.1
== END 2021-09-10 13:10 | disposition home or self-care (01) ==
LOC: NAV ERS 17:24 → NAV ACUTE 22:11
PROVIDERS: ADMIT Family Medicine; ATTEND Family Medicine
DX: E11.10 Type 2 diabetes mellitus with ketoacidosis without coma (principal); T38.3X5A Adverse effect of insulin and oral hypoglycemic [antidiabetic] drugs, initial encounter; I10 Essential (primary) hypertension; N40.0 Benign prostatic hyperplasia without lower urinary tract symptoms; K57.30 Diverticulosis of large intestine without perforation or abscess without bleeding; R19.7 Diarrhea, unspecified; E86.0 Dehydration; E78.5 Hyperlipidemia, unspecified; E87.6 Hypokalemia; K76.0 Fatty (change of) liver, not elsewhere classified; Z86.73 Personal history of transient ischemic attack (TIA), and cerebral infarction without residual deficits; Z87.891 Personal history of nicotine dependence; Z79.02 Long term (current) use of antithrombotics/antiplatelets; Z79.82 Long term (current) use of aspirin; Z79.84 Long term (current) use of oral hypoglycemic drugs; Z79.899 Other long term (current) drug therapy; Z20.822 Contact with and (suspected) exposure to COVID-19
CPT/HCPCS: 36415; 36416; 74176; 74177; 80048; 80053; 81003; 81015; 82550; 83605; 83690; 83735; 84484; 85025; 87324; 87449; 87493; 93005; 96365; 96366; 96375; 96376; G0378; J1815; J2405; J2543; J3480; J3490; J7050; Q9967; U0002

== ENCOUNTER 2023-05-05 16:55 | Emergency (ER) | payer MEDICARE, OTHER ==
[2023-05-05] MEDS ORDERED: Sodium Chloride 0.9% 1,000 ML ONE (17:27)
[2023-05-05 17:33] LABS: #Basophils 0.2 thou/uL (0.0-0.2); #Eosinphils 0.4 thou/uL (0.0-0.7); #Monocytes 0.8 thou/uL (0.11-0.59); %Basophils 1.8 % (0.0-1.0); %Lymphocytes 19.2 % (21.0-51.0); %Monocytes 7.9 % (0.0-10.0); %Neutrophils 67.1 % (42.0-75.0); Hemoglobin 15.9 g/dL (14.0-18.0); Mean Corpuscular HGB CONC 32.4 g/dL (32.0-36.0); Mean Corpuscular Hemoglobin 30.7 pg (27.0-31.0); Mean Corpuscular Volume 94.9 fl (78.0-98.0); Platelet Count 410 10x3/uL (130-400); RBC Distribution Width 12.5 % (11.5-14.5); Red Blood Cell (RBC) Count 5.16 mill/uL (4.70-6.10); White Blood Cell (WBC) Count 10.4 10x3/uL (4.8-10.8)
[2023-05-05 18:03] LABS: ALT (SGPT) 31 U/L (8-55); AST (SGOT) 52 U/L (5-34); Albumin 2.3 g/dL (3.4-4.8); Alkaline Phosphatase 104 U/L (40-110); Anion Gap 17 mmol/L (10-20); BUN (Urea Nitrogen) 11 mg/dL (8.4-25.7); Bilirubin, Total 1.4 mg/dL (0.2-1.2); Calc. Creatinine Clearance 0 mL/min (70-130); Calcium 8.3 mg/dL (7.8-10.44); Carbon Dioxide 23 mmol/L (23-31); Chloride 105 mmol/L (98-107); Estimated GFR 95; Globulin 2.7 g/dL (2.4-3.5); Glucose 111 mg/dL (83-110); Lipase 7 U/L (8-78); Potassium 4.1 mmol/L (3.5-5.1); Sodium 141 mmol/L (136-145); Troponin I Less than 0.010 ng/mL (< 0.028)
== END 2023-05-05 18:31 | disposition home or self-care (01) ==
LOC: NAV ERS 16:55
DX: R11.0 Nausea (principal); I10 Essential (primary) hypertension; E11.9 Type 2 diabetes mellitus without complications
CPT/HCPCS: 80053; 83690; 84484; 85025; J7050